=== PATIENT | male | born 1960 | race Caucasian/White ===

== ENCOUNTER 2023-09-06 10:52 | Outpatient (CLI) | payer BC, MEDICARE ==
[2023-09-06 11:49] LABS: BASOPHILS # (AUTO) 0.1 X10'3 (0-0.2); BASOPHILS % (AUTO) 0.7 % (0-1); EOSINOPHILS # (AUTO) 0.1 X10'3 (0-0.9); EOSINOPHILS % (AUTO) 1.1 % (0-6); HEMATOCRIT 41.2 % (42.0-52.0); HEMOGLOBIN 13.3 g/dl (14.0-17.9); LYMPHOCYTES # (AUTO) 1.3 X10'3 (1.1-4.8); MEAN CORPUSCULAR HEMOGLOBIN 26.2 PG (27.0-31.0); MEAN CORPUSCULAR HGB CONC 32.2 g/dL (33.0-36.5); MEAN CORPUSCULAR VOLUME 81.2 FL (78-98); MEAN PLATELET VOLUME 7.8 FL (7.4-10.4); MONOCYTES # (AUTO) 0.7 X10'3 (0-0.9); MONOCYTES % (AUTO) 8.7 % (2-12); NEUTROPHILS # (AUTO) 5.6 X10'3 (1.8-7.7); NEUTROPHILS % (AUTO) 72.5 % (42-75); PLATELET COUNT 286 X10'3 (140-440); RED BLOOD COUNT 5.08 X10'6 (4.70-6.10); RED CELL DISTRIBUTION WIDTH 19.1 % (11.5-14.5); WHITE BLOOD COUNT 7.7 X10'3 (4.5-11.0)
[2023-09-06 11:53] LABS: APTT 27 SECONDS (22-32); INR 1.1 INR; PROTHROMBIN TIME 11.1 SECONDS (9.0-12.0)
[2023-09-06 11:58] LABS: ALANINE AMINOTRANSFERASE 38 U/L (12-78); ALBUMIN 3.3 G/DL (3.4-5.0); ALBUMIN/GLOBULIN RATIO 0.8 (1.1-1.5); ALKALINE PHOSPHATASE 94 IU/L (46-116); ANION GAP 10 (8-16); ASPARTATE AMINO TRANSFERASE 19 U/L (10-37); BILIRUBIN,TOTAL 1.2 MG/DL (0.1-1.0); BLOOD UREA NITROGEN 21 MG/DL (7-18); BUN/CREATININE RATIO 20.2 (10.0-20.0); CALCIUM 9.3 MG/DL (8.5-10.1); CHLORIDE 104 MMOL/L (99-107); CREATININE 1.04 MG/DL (0.60-1.10); GLUCOSE 150 MG/DL (70-104); POTASSIUM 4.5 MMOL/L (3.5-5.1); SODIUM 139 MMOL/L (135-145); TOTAL CARBON DIOXIDE 25.3 MMOL/L (24-32); TOTAL PROTEIN 7.6 G/DL (6.4-8.2); eGFR 72 ML/MIN
[2023-09-06 12:05] LABS: PRO BRAIN NATRIURETIC PEPTIDE 344 PG/ML (0-125)
[2023-09-06] MEDS ORDERED: IODIXANOL 320 MG/ML INFUS..BTL 100ML IV ONE (12:49)
== END 2023-09-06 23:59 | disposition home or self-care (01) ==
LOC: RAD 10:52
PROVIDERS: ATTEND Internal Medicine Cardiovascular Disease
DX: I65.23 Occlusion and stenosis of bilateral carotid arteries (principal); I35.0 Nonrheumatic aortic (valve) stenosis; R06.02 Shortness of breath; I25.10 Atherosclerotic heart disease of native coronary artery without angina pectoris
CPT/HCPCS: 71046; 71275; 74174; 75572; 80053; 83880; 85025; 85610; 85730; 93880; Q9967

== ENCOUNTER 2023-11-09 08:30 | Inpatient (IN) | payer MEDICARE ==
[2023-11-03 15:09] LABS: BILIRUBIN,URINE NEGATIVE (Neg); CLARITY,URINE CLEAR (Clear); COLOR,URINE YELLOW (Yellow); GLUCOSE, URINE NEGATIVE (Neg); KETONES,URINE NEGATIVE (Neg); LEUKOCYTE ESTERASE ,URINE NEGATIVE (Neg); NITRITES, URINE NEGATIVE (Neg); OCCULT BLOOD,URINE NEGATIVE (Neg); PROTEIN,URINE NEGATIVE (Neg); UROBILINOGEN,URINE 0.2 E.U/dL (0.2-1.0)
[2023-11-03 15:19] LABS: BASOPHILS % (AUTO) 0.5 % (0-1); EOSINOPHILS # (AUTO) 0.1 X10'3 (0-0.9); EOSINOPHILS % (AUTO) 1.7 % (0-6); LYMPHOCYTES # (AUTO) 1.3 X10'3 (1.1-4.8); LYMPHOCYTES % (AUTO) 17.9 % (21-51); MEAN CORPUSCULAR HEMOGLOBIN 27.2 PG (27.0-31.0); MEAN CORPUSCULAR HGB CONC 32.8 g/dL (33.0-36.5); MEAN CORPUSCULAR VOLUME 82.8 FL (78-98); MONOCYTES # (AUTO) 0.7 X10'3 (0-0.9); MONOCYTES % (AUTO) 9.7 % (2-12); NEUTROPHILS # (AUTO) 5.2 X10'3 (1.8-7.7); NEUTROPHILS % (AUTO) 70.2 % (42-75); PRE OP HEMATOCRIT 41.8 % (42.0-52.0); PRE OP HEMOGLOBIN 13.7 g/dL (14.0-17.9); PRE OP PLATELET COUNT 213 X10'3 (140-440); PRE OP WHITE BLOOD COUNT 7.4 10'3 (4.8-10.8); RED BLOOD COUNT 5.05 X10'6 (4.70-6.10)
[2023-11-03 15:23] LABS: PRE OP INR 1.1 INR; PRE OP PROTIME 12.2 SECONDS (9.0-12.0)
[2023-11-03 15:26] LABS: UA COLLECTION TYPE CLN CATCH MIDSTREAM
[2023-11-03 15:28] LABS: ALBUMIN 3.3 G/DL (3.4-5.0); ALBUMIN/GLOBULIN RATIO 0.8 (1.1-1.5); ALKALINE PHOSPHATASE 96 IU/L (46-116); BLOOD UREA NITROGEN 17 MG/DL (7-18); BUN/CREATININE RATIO 18.7 (10.0-20.0); CALCIUM 9.1 MG/DL (8.5-10.1); CHLORIDE 101 MMOL/L (99-107); CREATININE 0.91 MG/DL (0.60-1.10); PRE OP ALT 24 U/L (30-65); PRE OP ANION GAP 11 (8-16); PRE OP AST 18 U/L (10-37); PRE OP BILIRUB, TOTAL 1.5 MG/DL (0.0-1.0); PRE OP GLUCOSE 116 MG/DL (70-104); PRE OP POTASSIUM 3.9 MMOL/L (3.4-5.1); PRE OP SODIUM 140 MMOL/L (135-145); TOTAL CARBON DIOXIDE 28.1 MMOL/L (24-32); TOTAL PROTEIN 7.6 G/DL (6.4-8.2); eGFR 84 ML/MIN
[2023-11-03 15:51] LABS: HEMOGLOBIN A1C 6.9 % (4.5-6.2)
[~2023-11-09] VITALS: Ht 185.4 cm; Wt 148.8 kg
[2023-11-09] MEDS: DOCUMENT DATE & TIME OF BETA-BLOCKER PO ONE (05:30)
[2023-11-09 07:06] LABS: ABG BASE EXCESS -1.8 mmol/L (-2.0-3.0); ABG HCO3 21.7 mmol/L (21.0-28.0); ABG OXYGEN SATURATION 94.3 % (94.0-98.0); ABG PCO2 (T) 33.3 mmHg (35.0-48.0); ABG PH (T) 7.432 (7.350-7.450); ABG PO2 (T) 72.9 mmHg (83.0-108.0); ALLEN'S TEST POSITIVE; FCOHb 0.4 % (0.5-1.5); FHHb 5.7 % (0.0-5.0); FMetHb 0.1 % (0.0-1.5); FO2Hb 93.8 % (94.0-98.0); TOTAL HEMOGLOBIN 13.9 G/dl (13.5-17.5)
[~2023-11-09 08:30] MED LIST: ATOR40TA71 PO; BENA1TAB88 PO; Insulin Reg/NS 100units/100mL 100 ML IV SCH; METF-900 PO; METO-539 PO; OMEP20CA16 PO; PIOG30TA10 PO; POTA-205 PO; RIVA20TA PO; dextrose 50%-water 50ml dispensing syringe IV PRN; insulin glargine (Lantus) pen - multi-dose SQ PRN; ringers solution, lacted 1,000 ML IV SCH
[2023-11-10] MEDS ORDERED: LORA10TA7 PO (12:00)
[2023-11-11] VITALS (16 sets, daily range): BP systolic 97–157; BP diastolic 46–76; PULSE 73–113; RESP 12–25; TEMP 97.8; O2SAT 90–97
[2023-11-11] MEDS ORDERED: dextrose 50%-water 50ml dispensing syringe IV PRN ×2 (05:30→17:00)
[2023-11-11] MEDS: metoprolol tartrate 12.5mg (1/2 tablet) PO ONE ×2 (05:30→08:05)
[2023-11-11] MEDS: DOCUMENT DATE & TIME OF BETA-BLOCKER PO ONE (05:30)
[2023-11-11] MEDS ORDERED: Insulin Reg/NS 100units/100mL 100 ML IV SCH (05:30)
[2023-11-11] MEDS: famotidine 20mg tablet PO ONE ×2 (05:30→08:05)
[2023-11-11] MEDS: ceFAZolin/D5W- 1GM premix 50 ML IV ONE (07:35)
[2023-11-11] MEDS: ringers solution, lacted 1,000 ML IV SCH (08:04)
[2023-11-11] MEDS: midazolam 1 mg/ML 2ml injection IV ONE (08:35)
[2023-11-11] MEDS: ceFAZolin 1000mg inj ONE ×2 (10:22→12:50)
[2023-11-11] MEDS: BUPIVAcaine 0.5% inj/PF 30 ML ONE (10:22)
[2023-11-11] MEDS ORDERED: isoflurane 100ml inhalation liquid IH ONE (11:09)
[2023-11-11 11:55] LABS: ABG BASE EXCESS -0.7 mmol/L (-2.0-3.0); ABG HCO3 23.5 mmol/L (21.0-28.0); ABG OXYGEN SATURATION 99.2 % (94.0-98.0); ABG PCO2 37.1 mmHg (35.0-48.0); ABG PH 7.419 (7.350-7.450); ABG PO2 259.2 mmHg (83.0-108.0); CL (ABG) 107 mmol/L (98-107); FCOHb 0.2 % (0.5-1.5); FHHb 0.8 % (0.0-5.0); FMetHb 0.3 % (0.0-1.5); FO2Hb 98.7 % (94.0-98.0); GLUCOSE (ABG) 109 mg/dl (65-95); IONIZED CA (ABG) 1.13 mmol/L (1.15-1.33); K (ABG) 3.8 mmol/L (3.40-4.50); TOTAL HEMOGLOBIN 12.2 G/dl (13.5-17.5)
[2023-11-11] MEDS: ceFAZolin 1000mg inj IR ONE (12:20)
[2023-11-11 13:23] LABS: ABG HCO3 VENOUS 26.9 mmol/L (22.0-29.0); ABG OXYGEN SATURATION VENOUS 77.9 % (60.0-85.0); ABG PCO2 VENOUS 43.4 mmHg (38.0-54.0); ABG PO2 VENOUS 43.4 mmHg (23.0-48.0); CL (ABG) 102 mmol/L (98-107); FCOHb VENOUS 0.3 % (0.5-1.5); FMetHb VENOUS 0.3 % (0.5-1.5); FO2Hb VENOUS 77.4 % (0-80.0); GLUCOSE (ABG) 120 mg/dl (65-95); IONIZED CA (ABG) 0.95 mmol/L (1.15-1.33); K (ABG) 4.1 mmol/L (3.40-4.50)
[2023-11-11 13:40] LABS: ABG BASE EXCESS 1.2 mmol/L (-2.0-3.0); ABG HCO3 24.8 mmol/L (21.0-28.0); ABG OXYGEN SATURATION 99.2 % (94.0-98.0); ABG PCO2 35.3 mmHg (35.0-48.0); ABG PH 7.464 (7.350-7.450); CL (ABG) 105 mmol/L (98-107); FCOHb 0.3 % (0.5-1.5); FHHb 0.8 % (0.0-5.0); FMetHb 0.3 % (0.0-1.5); FO2Hb 98.6 % (94.0-98.0); GLUCOSE (ABG) 130 mg/dl (65-95); IONIZED CA (ABG) 1.04 mmol/L (1.15-1.33); K (ABG) 3.7 mmol/L (3.40-4.50); TOTAL HEMOGLOBIN 9.5 G/dl (13.5-17.5)
[2023-11-11 14:03] LABS: ABG BASE EXCESS 0.8 mmol/L (-2.0-3.0); ABG HCO3 25.6 mmol/L (21.0-28.0); ABG OXYGEN SATURATION 99.6 % (94.0-98.0); ABG PCO2 41.7 mmHg (35.0-48.0); ABG PH 7.406 (7.350-7.450); CL (ABG) 107 mmol/L (98-107); FCOHb 0.1 % (0.5-1.5); FHHb 0.4 % (0.0-5.0); FMetHb 0.3 % (0.0-1.5); FO2Hb 99.2 % (94.0-98.0); GLUCOSE (ABG) 143 mg/dl (65-95); IONIZED CA (ABG) 1.05 mmol/L (1.15-1.33); K (ABG) 4.4 mmol/L (3.40-4.50); TOTAL HEMOGLOBIN 9.8 G/dl (13.5-17.5)
[2023-11-11 14:40] LABS: ABG BASE EXCESS -0.3 mmol/L (-2.0-3.0); ABG HCO3 26.1 mmol/L (21.0-28.0); ABG OXYGEN SATURATION 99.4 % (94.0-98.0); ABG PCO2 51.3 mmHg (35.0-48.0); ABG PH 7.324 (7.350-7.450); CL (ABG) 108 mmol/L (98-107); FCOHb 0.3 % (0.5-1.5); FHHb 0.6 % (0.0-5.0); FMetHb 0.3 % (0.0-1.5); FO2Hb 98.8 % (94.0-98.0); GLUCOSE (ABG) 158 mg/dl (65-95); IONIZED CA (ABG) 1.08 mmol/L (1.15-1.33); K (ABG) 4.4 mmol/L (3.40-4.50)
[2023-11-11 15:13] LABS: ABG BASE EXCESS -1.3 mmol/L (-2.0-3.0); ABG HCO3 23.9 mmol/L (21.0-28.0); ABG OXYGEN SATURATION 99.4 % (94.0-98.0); ABG PCO2 41.8 mmHg (35.0-48.0); ABG PH 7.375 (7.350-7.450); CL (ABG) 108 mmol/L (98-107); FCOHb 0.3 % (0.5-1.5); FHHb 0.6 % (0.0-5.0); FMetHb 0.3 % (0.0-1.5); FO2Hb 98.8 % (94.0-98.0); GLUCOSE (ABG) 168 mg/dl (65-95); IONIZED CA (ABG) 1.08 mmol/L (1.15-1.33); K (ABG) 4.3 mmol/L (3.40-4.50); TOTAL HEMOGLOBIN 10.5 G/dl (13.5-17.5)
[2023-11-11 15:55] LABS: ABG HCO3 22.7 mmol/L (21.0-28.0); ABG PCO2 43.2 mmHg (35.0-48.0); ABG PH 7.338 (7.350-7.450); CL (ABG) 108 mmol/L (98-107); FCOHb 0.3 % (0.5-1.5); FHHb 19.8 % (0.0-5.0); FMetHb 0.3 % (0.0-1.5); FO2Hb 79.6 % (94.0-98.0); GLUCOSE (ABG) 153 mg/dl (65-95); IONIZED CA (ABG) 1.17 mmol/L (1.15-1.33); K (ABG) 3.9 mmol/L (3.40-4.50); TOTAL HEMOGLOBIN 9.9 G/dl (13.5-17.5)
[2023-11-11] MEDS: Insulin Reg/NS 100units/100mL 100 ML IV SCH (17:00)
[2023-11-11] MEDS ORDERED: Neutra Phos packet PO PRN (17:00)
[2023-11-11] MEDS ORDERED: nitroGLYCERIN-Tridil 50MG/D5W 250 ML IV PRN (17:00)
[2023-11-11] MEDS ORDERED: sodium phosphate inj. 30 MMOL in dextrose 5%-water 250 ML IV PRN (17:00)
[2023-11-11] MEDS ORDERED: metoclopramide 5 mg/ml inj IV PRN (17:00)
[2023-11-11] MEDS ORDERED: magnesium sulf-water 4G/100mL 100 ML IV PRN (17:00)
[2023-11-11] MEDS ORDERED: NORepinephrine 8mg/ 250ml NS 250 ML IV PRN (17:00)
[2023-11-11] MEDS: sodium chloride 0.45% 1,000 ML IV SCH (17:00)
[2023-11-11] MEDS ORDERED: potassium Cl 20 mEq SR tablet PO PRN (17:00)
[2023-11-11] MEDS ORDERED: potassium Cl 40MEQ/1/2NS 520ml 520 ML IV PRN (17:00)
[2023-11-11] MEDS ORDERED: bisacodyl 10mg suppository rectal RC PRN (17:00)
[2023-11-11] MEDS ORDERED: DOBUTamine-DoBUTrex 500mg/D5W 250 ML IV PRN (17:00)
[2023-11-11] MEDS ORDERED: normal saline 250ml IV soln 250 ML IV PRN (17:00)
[2023-11-11] MEDS ORDERED: insulin glargine (Lantus) pen - multi-dose SQ PRN (17:00)
[2023-11-11] MEDS ORDERED: acetaminophen 325mg tablet PO PRN (17:00)
[2023-11-11] MEDS ORDERED: mineral oil 133ml enema RC PRN (17:00)
[2023-11-11] MEDS ORDERED: magnesium hydroxide 30ml (MOM) UD suspension PO PRN (17:00)
[2023-11-11] MEDS ORDERED: potassium CL 10mEq/100ml bag 100 ML IV PRN (17:00)
[2023-11-11] MEDS ORDERED: potassium Cl 40MEQ/270ML bag 250 ML IV PRN (17:00)
[2023-11-11 17:34] LABS: ABG BASE EXCESS -5.4 mmol/L (-2.0-3.0); ABG HCO3 22.4 mmol/L (21.0-28.0); ABG OXYGEN SATURATION 96.9 % (94.0-98.0); ABG PCO2 (T) 51.6 mmHg (35.0-48.0); ABG PH (T) 7.249 (7.350-7.450); ABG PO2 (T) 104.6 mmHg (83.0-108.0); FCOHb 0.6 % (0.5-1.5); FHHb 3.1 % (0.0-5.0); FMetHb 0.3 % (0.0-1.5); MODE VENT - SIMV/VC; PATIENT TEMPERATURE 35.7; PEEP 5 cm H2O; RESPIRATORY RATE 12 b/min; TIDAL VOLUME 600 mL; TOTAL HEMOGLOBIN 11.4 G/dl (13.5-17.5)
[2023-11-11 17:38] LABS: BASOPHILS % (AUTO) 0.2 % (0-1); EOSINOPHILS # (AUTO) 0.1 X10'3 (0-0.9); EOSINOPHILS % (AUTO) 0.4 % (0-6); HEMOGLOBIN 10.6 g/dl (14.0-17.9); LYMPHOCYTES # (AUTO) 1.6 X10'3 (1.1-4.8); LYMPHOCYTES % (AUTO) 8.5 % (21-51); MEAN CORPUSCULAR HEMOGLOBIN 27.4 PG (27.0-31.0); MEAN CORPUSCULAR HGB CONC 32.1 g/dL (33.0-36.5); MEAN CORPUSCULAR VOLUME 85.3 FL (78-98); MEAN PLATELET VOLUME 7.6 FL (7.4-10.4); MONOCYTES # (AUTO) 1.3 X10'3 (0-0.9); MONOCYTES % (AUTO) 6.9 % (2-12); NEUTROPHILS # (AUTO) 15.9 X10'3 (1.8-7.7); PLATELET COUNT 126 X10'3 (140-440); RED BLOOD COUNT 3.87 X10'6 (4.70-6.10); RED CELL DISTRIBUTION WIDTH 17.6 % (11.5-14.5); WHITE BLOOD COUNT 18.9 X10'3 (4.5-11.0)
[2023-11-11 17:53] LABS: ALANINE AMINOTRANSFERASE 19 U/L (12-78); ALBUMIN 2.8 G/DL (3.4-5.0); ALBUMIN/GLOBULIN RATIO 1.1 (1.1-1.5); ALKALINE PHOSPHATASE 54 IU/L (46-116); ANION GAP 10 (8-16); APTT 28 SECONDS (22-32); BLOOD UREA NITROGEN 15 MG/DL (7-18); CALCIUM 7.9 MG/DL (8.5-10.1); CHLORIDE 111 MMOL/L (99-107); CREATININE 0.79 MG/DL (0.60-1.10); FIBRINOGEN 248 MG/DL (177-424); GLUCOSE 171 MG/DL (70-104); INR 1.3 INR; MAGNESIUM 2.4 MG/DL (1.5-2.4); PROTHROMBIN TIME 13.6 SECONDS (9.0-12.0); SODIUM 146 MMOL/L (135-145); TOTAL PROTEIN 5.3 G/DL (6.4-8.2); eCRCL 105 ML/MIN; eGFR > 90 ML/MIN
[2023-11-11 17:58] LABS: ASPARTATE AMINO TRANSFERASE 46 U/L (10-37); PHOSPHORUS 3.5 MG/DL (2.3-4.5); POTASSIUM 3.9 MMOL/L (3.5-5.1)
[2023-11-11] MEDS ORDERED: dexmedetomidine inj. 1,000 MCG in normal saline 250ml IV soln 240 ML IV SCH (18:15)
[2023-11-11] MEDS: morphine 4 MG/ML inj SYRINge IV PRN (18:25)
[2023-11-11] MEDS: niCARDipine-NS 40mg/200ml IVPB 200 ML IV PRN (18:25)
[2023-11-11] MEDS: potassium Cl 20mEq/100mL bag 100 ML IV PRN (18:33)
[2023-11-11] MEDS: magnesium sulf-water 2g/50mL 50 ML IV PRN (18:33)
[2023-11-11] MEDS: DEXMEDETOMIDINE 400MCG in NORMAL SALINE 100ml IV SCH (18:41)
[2023-11-11] MEDS: albumin (Human) 5% 250ml 250 ML IV PRN (19:06)
[2023-11-11] MEDS: acetaminophen 325mg tablet PO PRN (19:35)
[2023-11-11] MEDS: vancomycin/NS 1 GM ADD-VANTAGE 250 ML IV SCH (19:59)
[2023-11-11] MEDS: atorvastatin 10mg tablet PO SCH (20:00)
[2023-11-11] MEDS: aspirin 81mg tab.chew PO ONE (20:00)
[2023-11-11] MEDS: mupirocin 2% nasal ointment 1gm UD NS SCH (20:00)
[2023-11-11] MEDS: gabapentin 300mg capsule PO SCH (20:00)
[2023-11-11] MEDS: sennosides/docusate sodium tablet PO SCH (20:00)
[2023-11-11] MEDS: furosemide 20 MG/2 ML vial IV ONE (20:42)
[2023-11-11] MEDS: COMMUNICATION ORDER 1 EA MISC MC ONE (20:42)
[2023-11-11 21:03] LABS: ABG BASE EXCESS -7.2 mmol/L (-2.0-3.0); ABG HCO3 18.4 mmol/L (21.0-28.0); ABG OXYGEN SATURATION 93.6 % (94.0-98.0); ABG PCO2 (T) 34.6 mmHg (35.0-48.0); ABG PH (T) 7.336 (7.350-7.450); FCOHb 0.5 % (0.5-1.5); FHHb 6.3 % (0.0-5.0); FMetHb 0.3 % (0.0-1.5); FO2Hb 92.9 % (94.0-98.0); MODE Vent-SIMV-VC; PATIENT TEMPERATURE 35.4; PEEP 5 cm H2O; RESPIRATORY RATE 15 b/min; TIDAL VOLUME 600 mL; TOTAL HEMOGLOBIN 10.7 G/dl (13.5-17.5)
[2023-11-11] MEDS: milrinone (Primacor) 20mg/D5W 100 ML IV PRN (21:51)
[2023-11-11 23:47] LABS: BASOPHILS % (AUTO) 0.1 % (0-1); EOSINOPHILS % (AUTO) 0 % (0-6); HEMATOCRIT 29.8 % (42.0-52.0); HEMOGLOBIN 9.6 g/dl (14.0-17.9); LYMPHOCYTES # (AUTO) 0.3 X10'3 (1.1-4.8); LYMPHOCYTES % (AUTO) 2.3 % (21-51); MEAN CORPUSCULAR HEMOGLOBIN 27.4 PG (27.0-31.0); MEAN CORPUSCULAR HGB CONC 32.3 g/dL (33.0-36.5); MEAN CORPUSCULAR VOLUME 84.8 FL (78-98); MEAN PLATELET VOLUME 7.6 FL (7.4-10.4); MONOCYTES # (AUTO) 0.7 X10'3 (0-0.9); MONOCYTES % (AUTO) 5.2 % (2-12); NEUTROPHILS # (AUTO) 12.7 X10'3 (1.8-7.7); NEUTROPHILS % (AUTO) 92.4 % (42-75); PLATELET COUNT 115 X10'3 (140-440); RED BLOOD COUNT 3.51 X10'6 (4.70-6.10); RED CELL DISTRIBUTION WIDTH 17.7 % (11.5-14.5); WHITE BLOOD COUNT 13.8 X10'3 (4.5-11.0)
[2023-11-11] MEDS: cefazolin 2gm/D5W 100mL 100 ML IV SCH (23:56)
[2023-11-12] VITALS (26 sets, daily range): BP systolic 97–157; BP diastolic 46–100; PULSE 63–90; RESP 10–23; O2SAT 88–98
[2023-11-12 00:01] LABS: ALBUMIN 3.2 G/DL (3.4-5.0); ANION GAP 10 (8-16); BLOOD UREA NITROGEN 18 MG/DL (7-18); BUN/CREATININE RATIO 15.3 (10.0-20.0); CHLORIDE 110 MMOL/L (99-107); CREATININE 1.18 MG/DL (0.60-1.10); GLUCOSE 191 MG/DL (70-104); MAGNESIUM 2.5 MG/DL (1.5-2.4); PHOSPHORUS 2.9 MG/DL (2.3-4.5); SODIUM 143 MMOL/L (135-145); TOTAL CARBON DIOXIDE 23.4 MMOL/L (24-32); eCRCL 71 ML/MIN; eGFR 62 ML/MIN
[2023-11-12 00:02] LABS: POTASSIUM 4.7 MMOL/L (3.5-5.1)
[2023-11-12] MEDS: HYDROcodone/acetaminophen 10/325mg tab PO PRN ×2 (00:16→04:16)
[2023-11-12 02:49] LABS: BASOPHILS % (AUTO) 0 % (0-1); EOSINOPHILS % (AUTO) 0 % (0-6); HEMATOCRIT 29.2 % (42.0-52.0); HEMOGLOBIN 9.4 g/dl (14.0-17.9); LYMPHOCYTES # (AUTO) 0.3 X10'3 (1.1-4.8); LYMPHOCYTES % (AUTO) 2.8 % (21-51); MEAN CORPUSCULAR HGB CONC 32.1 g/dL (33.0-36.5); MEAN CORPUSCULAR VOLUME 84.3 FL (78-98); MEAN PLATELET VOLUME 7.8 FL (7.4-10.4); MONOCYTES # (AUTO) 0.4 X10'3 (0-0.9); MONOCYTES % (AUTO) 3.5 % (2-12); NEUTROPHILS # (AUTO) 11.1 X10'3 (1.8-7.7); NEUTROPHILS % (AUTO) 93.7 % (42-75); PLATELET COUNT 107 X10'3 (140-440); RED BLOOD COUNT 3.46 X10'6 (4.70-6.10); RED CELL DISTRIBUTION WIDTH 17.7 % (11.5-14.5); WHITE BLOOD COUNT 11.8 X10'3 (4.5-11.0)
[2023-11-12 02:55] LABS: APTT 32 SECONDS (22-32); INR 1.1 INR; PROTHROMBIN TIME 11.7 SECONDS (9.0-12.0)
[2023-11-12 02:59] LABS: ALANINE AMINOTRANSFERASE 22 U/L (12-78); ALBUMIN 3.1 G/DL (3.4-5.0); ALBUMIN/GLOBULIN RATIO 1.3 (1.1-1.5); ALKALINE PHOSPHATASE 51 IU/L (46-116); ANION GAP 9 (8-16); ASPARTATE AMINO TRANSFERASE 57 U/L (10-37); BILIRUBIN,TOTAL 2.3 MG/DL (0.1-1.0); BLOOD UREA NITROGEN 19 MG/DL (7-18); BUN/CREATININE RATIO 16.4 (10.0-20.0); CALCIUM 8.3 MG/DL (8.5-10.1); CHLORIDE 111 MMOL/L (99-107); CREATININE 1.16 MG/DL (0.60-1.10); GLUCOSE 171 MG/DL (70-104); MAGNESIUM 2.6 MG/DL (1.5-2.4); PHOSPHORUS 2.3 MG/DL (2.3-4.5); POTASSIUM 4.3 MMOL/L (3.5-5.1); SODIUM 145 MMOL/L (135-145); TOTAL CARBON DIOXIDE 25.3 MMOL/L (24-32); TOTAL PROTEIN 5.4 G/DL (6.4-8.2); eCRCL 72 ML/MIN; eGFR 63 ML/MIN
[2023-11-12] MEDS: sodium phosphate inj. 15 MMOL in dextrose 5%-water 250 ML IV PRN (03:55)
[2023-11-12] MEDS: ondansetron/PF 4mg/2ml inj IV PRN (05:15)
[2023-11-12] MEDS: morphine 2 MG/ML inj. syringe IV PRN (05:16)
[2023-11-12] MEDS: metoprolol tartrate 12.5mg (1/2 tablet) PO SCH (09:44)
[2023-11-12] MEDS: aspirin 81mg tab.chew PO SCH (09:44)
[2023-11-12] MEDS: mineral oil/petrolatum ophthal oint EACHEYE SCH (14:00)
[2023-11-12] MEDS: ringers solution, lacted 1,000 ML IV ONE (14:32)
[2023-11-13] VITALS (19 sets, daily range): BP systolic 109–141; BP diastolic 44–71; PULSE 70–101; RESP 11–25; TEMP 97.4–98.9; O2SAT 90–99
[2023-11-13 03:06] LABS: BASOPHILS % (AUTO) 0 % (0-1); EOSINOPHILS % (AUTO) 0 % (0-6); HEMATOCRIT 26.3 % (42.0-52.0); HEMOGLOBIN 8.5 g/dl (14.0-17.9); LYMPHOCYTES # (AUTO) 0.6 X10'3 (1.1-4.8); LYMPHOCYTES % (AUTO) 3.2 % (21-51); MEAN CORPUSCULAR HEMOGLOBIN 27.3 PG (27.0-31.0); MEAN CORPUSCULAR HGB CONC 32.3 g/dL (33.0-36.5); MEAN CORPUSCULAR VOLUME 84.5 FL (78-98); MEAN PLATELET VOLUME 8.4 FL (7.4-10.4); MONOCYTES # (AUTO) 1.6 X10'3 (0-0.9); MONOCYTES % (AUTO) 8.2 % (2-12); NEUTROPHILS # (AUTO) 17.3 X10'3 (1.8-7.7); NEUTROPHILS % (AUTO) 88.6 % (42-75); PLATELET COUNT 109 X10'3 (140-440); RED BLOOD COUNT 3.11 X10'6 (4.70-6.10); RED CELL DISTRIBUTION WIDTH 18.2 % (11.5-14.5); WHITE BLOOD COUNT 19.5 X10'3 (4.5-11.0)
[2023-11-13 03:16] LABS: ALBUMIN 2.8 G/DL (3.4-5.0); ANION GAP 5 (8-16); BLOOD UREA NITROGEN 21 MG/DL (7-18); BUN/CREATININE RATIO 20.6 (10.0-20.0); CHLORIDE 106 MMOL/L (99-107); CREATININE 1.02 MG/DL (0.60-1.10); GLUCOSE 114 MG/DL (70-104); MAGNESIUM 2.4 MG/DL (1.5-2.4); PHOSPHORUS 4.2 MG/DL (2.3-4.5); POTASSIUM 5.3 MMOL/L (3.5-5.1); SODIUM 138 MMOL/L (135-145); eCRCL 82 ML/MIN; eGFR 73 ML/MIN
[2023-11-13] MEDS: pantoprazole 40mg Tablet.DR PO SCH (08:16)
[2023-11-13] MEDS ORDERED: potassium Cl 20 mEq SR tablet PO PRN ×2 (08:25)
[2023-11-13] MEDS ORDERED: magnesium sulf-water 2g/50mL 50 ML IV PRN (08:25)
[2023-11-13] MEDS ORDERED: magnesium sulf-water 4G/100mL 100 ML IV PRN (08:25)
[2023-11-13] MEDS ORDERED: potassium Cl 40MEQ/1/2NS 520ml 520 ML IV PRN (08:25)
[2023-11-13] MEDS ORDERED: potassium Cl 40MEQ/270ML bag 250 ML IV PRN (08:25)
[2023-11-13] MEDS ORDERED: potassium CL 10mEq/100ml bag 100 ML IV PRN (08:25)
[2023-11-13] MEDS ORDERED: potassium Cl 20mEq/100mL bag 100 ML IV PRN (08:25)
[2023-11-13] MEDS ORDERED: dextrose 50%-water 50ml dispensing syringe IV PRN ×2 (09:10)
[2023-11-13] MEDS ORDERED: glucagon, human recombinant 1mg kit SUBCUT PRN (09:10)
[2023-11-13] MEDS ORDERED: DEXTROSE 15 GM of carb/4 tabs (each vial/BOTTLE has 4 tablets) PO PRN ×2 (09:10)
[2023-11-13] MEDS: INSULIN LISPRO 100 UNIT/ML INSULN.PEN MULTI-DOSE SQ SCH ×2 (13:25→13:26)
[2023-11-13] MEDS: rivaroxaban 20mg tablet PO SCH (17:59)
[2023-11-13] MEDS: magnesium Cl slow-release 64mg tablet PO SCH (20:01)
[2023-11-13] MEDS: insulin glargine (Lantus) pen - multi-dose SQ SCH (23:09)
[2023-11-14] VITALS (10 sets, daily range): BP systolic 99–131; BP diastolic 57–72; PULSE 74–105; RESP 16–26; TEMP 97–99.1; O2SAT 90–96
[2023-11-14 05:23] LABS: BASOPHILS % (AUTO) 0 % (0-1); EOSINOPHILS # (AUTO) 0.1 X10'3 (0-0.9); EOSINOPHILS % (AUTO) 0.9 % (0-6); HEMATOCRIT 26.8 % (42.0-52.0); HEMOGLOBIN 8.7 g/dl (14.0-17.9); LYMPHOCYTES # (AUTO) 1.3 X10'3 (1.1-4.8); LYMPHOCYTES % (AUTO) 9.1 % (21-51); MEAN CORPUSCULAR HEMOGLOBIN 27.5 PG (27.0-31.0); MEAN CORPUSCULAR HGB CONC 32.5 g/dL (33.0-36.5); MEAN CORPUSCULAR VOLUME 84.7 FL (78-98); MONOCYTES # (AUTO) 1.3 X10'3 (0-0.9); MONOCYTES % (AUTO) 8.6 % (2-12); NEUTROPHILS % (AUTO) 81.4 % (42-75); PLATELET COUNT 131 X10'3 (140-440); RED BLOOD COUNT 3.16 X10'6 (4.70-6.10); RED CELL DISTRIBUTION WIDTH 18.2 % (11.5-14.5); WHITE BLOOD COUNT 14.7 X10'3 (4.5-11.0)
[2023-11-14 05:25] LABS: ALBUMIN 2.6 G/DL (3.4-5.0); ANION GAP 6 (8-16); BLOOD UREA NITROGEN 18 MG/DL (7-18); BUN/CREATININE RATIO 19.1 (10.0-20.0); CALCIUM 7.9 MG/DL (8.5-10.1); CHLORIDE 106 MMOL/L (99-107); CREATININE 0.94 MG/DL (0.60-1.10); GLUCOSE 156 MG/DL (70-104); MAGNESIUM 2.1 MG/DL (1.5-2.4); POTASSIUM 4.5 MMOL/L (3.5-5.1); SODIUM 140 MMOL/L (135-145); TOTAL CARBON DIOXIDE 27.6 MMOL/L (24-32); eCRCL 89 ML/MIN; eGFR 81 ML/MIN
[2023-11-14 08:41] LABS: ACT @ 1.70 U 219 SEC (193-297); ACT @ 2.84 U 289 SEC (260-420); BASELINE ACT 94 SEC (101-148)
[2023-11-14 10:10] LABS: ABG PO2 387.9 mmHg (83.0-108.0)
[2023-11-14 10:11] LABS: ABG PO2 433.7 mmHg (83.0-108.0)
[2023-11-14 10:14] LABS: ABG PO2 443.7 mmHg (83.0-108.0)
[2023-11-14 10:16] LABS: ABG PO2 394.6 mmHg (83.0-108.0)
[2023-11-14 10:16] LABS: ABG PO2 47.5 mmHg (83.0-108.0)
[2023-11-14] MEDS: furosemide 40mg/4ml inj IV ONE (10:16)
[2023-11-14 10:17] LABS: ABG OXYGEN SATURATION 80.1 % (94.0-98.0)
[2023-11-14] MEDS: levoFLOXACIN 500mg tablet PO SCH (11:52)
[2023-11-14] MEDS ORDERED: heparin, porcine 5000 units/ml vial SQ SCH (16:00)
[2023-11-15] VITALS (13 sets, daily range): BP systolic 103–135; BP diastolic 63–79; PULSE 70–90; RESP 16–21; TEMP 97.4–98.1; O2SAT 93–97
[2023-11-15] MEDS: heparin, porcine 5000 units/ml vial SQ SCH
[2023-11-15 06:21] LABS: BASOPHILS % (AUTO) 0.2 % (0-1); EOSINOPHILS # (AUTO) 0.3 X10'3 (0-0.9); HEMATOCRIT 29.6 % (42.0-52.0); HEMOGLOBIN 9.5 g/dl (14.0-17.9); LYMPHOCYTES # (AUTO) 1.3 X10'3 (1.1-4.8); MEAN CORPUSCULAR HEMOGLOBIN 27.3 PG (27.0-31.0); MEAN CORPUSCULAR HGB CONC 32.1 g/dL (33.0-36.5); MEAN CORPUSCULAR VOLUME 85.1 FL (78-98); MEAN PLATELET VOLUME 7.8 FL (7.4-10.4); NEUTROPHILS # (AUTO) 10.2 X10'3 (1.8-7.7); NEUTROPHILS % (AUTO) 79.8 % (42-75); PLATELET COUNT 180 X10'3 (140-440); RED BLOOD COUNT 3.47 X10'6 (4.70-6.10); RED CELL DISTRIBUTION WIDTH 18.4 % (11.5-14.5); WHITE BLOOD COUNT 12.7 X10'3 (4.5-11.0)
[2023-11-15 06:43] LABS: ALBUMIN 2.7 G/DL (3.4-5.0); ANION GAP 8 (8-16); BLOOD UREA NITROGEN 17 MG/DL (7-18); BUN/CREATININE RATIO 23.6 (10.0-20.0); CALCIUM 8.5 MG/DL (8.5-10.1); CHLORIDE 105 MMOL/L (99-107); CREATININE 0.72 MG/DL (0.60-1.10); GLUCOSE 133 MG/DL (70-104); MAGNESIUM 2.2 MG/DL (1.5-2.4); SODIUM 140 MMOL/L (135-145); TOTAL CARBON DIOXIDE 27.1 MMOL/L (24-32); eCRCL 116 ML/MIN; eGFR > 90 ML/MIN
[2023-11-15] MEDS: furosemide 40mg tablet PO SCH (09:57)
[2023-11-16] VITALS (7 sets, daily range): BP systolic 128–134; BP diastolic 63–81; PULSE 78–92; RESP 16–24; TEMP 98–98.8; O2SAT 92–96
[2023-11-16 04:55] LABS: BASOPHILS % (AUTO) 0.5 % (0-1); EOSINOPHILS # (AUTO) 0.3 X10'3 (0-0.9); EOSINOPHILS % (AUTO) 3.3 % (0-6); HEMATOCRIT 28.6 % (42.0-52.0); HEMOGLOBIN 9.4 g/dl (14.0-17.9); LYMPHOCYTES # (AUTO) 1.2 X10'3 (1.1-4.8); MEAN CORPUSCULAR HEMOGLOBIN 27.4 PG (27.0-31.0); MEAN CORPUSCULAR HGB CONC 32.7 g/dL (33.0-36.5); MEAN CORPUSCULAR VOLUME 83.6 FL (78-98); MEAN PLATELET VOLUME 7.5 FL (7.4-10.4); MONOCYTES # (AUTO) 0.9 X10'3 (0-0.9); MONOCYTES % (AUTO) 9.2 % (2-12); PLATELET COUNT 219 X10'3 (140-440); RED BLOOD COUNT 3.43 X10'6 (4.70-6.10); RED CELL DISTRIBUTION WIDTH 17.6 % (11.5-14.5); WHITE BLOOD COUNT 9.5 X10'3 (4.5-11.0)
[2023-11-16 05:11] LABS: ALBUMIN 2.5 G/DL (3.4-5.0); ANION GAP 7 (8-16); BLOOD UREA NITROGEN 16 MG/DL (7-18); BUN/CREATININE RATIO 21.1 (10.0-20.0); CALCIUM 8.5 MG/DL (8.5-10.1); CHLORIDE 105 MMOL/L (99-107); CREATININE 0.76 MG/DL (0.60-1.10); GLUCOSE 126 MG/DL (70-104); POTASSIUM 3.8 MMOL/L (3.5-5.1); SODIUM 141 MMOL/L (135-145); TOTAL CARBON DIOXIDE 29.3 MMOL/L (24-32); eCRCL 110 ML/MIN; eGFR > 90 ML/MIN
[2023-11-17 06:00] VITALS: BP 137/71; PULSE 91; RESP 17; TEMP 97.5; O2SAT 95
[2023-11-17 07:01] LABS: ALBUMIN 2.4 G/DL (3.4-5.0); ANION GAP 5 (8-16); BLOOD UREA NITROGEN 13 MG/DL (7-18); BUN/CREATININE RATIO 15.7 (10.0-20.0); CALCIUM 8.6 MG/DL (8.5-10.1); CHLORIDE 104 MMOL/L (99-107); CREATININE 0.83 MG/DL (0.60-1.10); GLUCOSE 105 MG/DL (70-104); POTASSIUM 3.9 MMOL/L (3.5-5.1); SODIUM 140 MMOL/L (135-145); TOTAL CARBON DIOXIDE 30.8 MMOL/L (24-32); eCRCL 100 ML/MIN; eGFR > 90 ML/MIN
[2023-11-17 07:38] VITALS: RESP 17; O2SAT 95
[2023-11-17 08:00] VITALS: O2SAT 95
[2023-11-17] MEDS: furosemide 40mg tablet PO SCH (08:30)
[2023-11-17 09:14] VITALS: PULSE 92; RESP 20; O2SAT 94
[2023-11-17 11:00] VITALS: BP 122/57; PULSE 65; RESP 21; TEMP 97.7; O2SAT 94
== END 2023-11-17 16:00 | DRG 219 ==
LOC: PAS IN 11-11 06:46 → CICU 2S 11-11 13:20 → PCU 3S 11-13 14:36
PROVIDERS: ADMIT Thoracic Surgery (Cardiothoracic Vascular Surgery); ATTEND Thoracic Surgery (Cardiothoracic Vascular Surgery)
PROC: 02L70ZK Occlusion of Left Atrial Appendage, Open Approach (ICD-10-PCS; 2023-11-11)
PROC: B24BZZ4 Ultrasonography of Heart with Aorta, Transesophageal (ICD-10-PCS; 2023-11-11)
PROC: 02RF08Z Replacement of Aortic Valve with Zooplastic Tissue, Open Approach (ICD-10-PCS; principal; 2023-11-11 11:09)
PROC: 5A09357 Assistance with Respiratory Ventilation, Less than 24 Consecutive Hours, Continuous Positive Airway Pressure (ICD-10-PCS; 2023-11-12)
PROC: 5A09357 Assistance with Respiratory Ventilation, Less than 24 Consecutive Hours, Continuous Positive Airway Pressure (ICD-10-PCS; 2023-11-14)
DX: I35.0 Nonrheumatic aortic (valve) stenosis (principal); J96.20 Acute and chronic respiratory failure, unspecified whether with hypoxia or hypercapnia; I48.20 Chronic atrial fibrillation, unspecified; Z68.41 Body mass index [BMI] 40.0-44.9, adult; I10 Essential (primary) hypertension; E66.01 Morbid (severe) obesity due to excess calories; E11.9 Type 2 diabetes mellitus without complications; J44.9 Chronic obstructive pulmonary disease, unspecified; G47.33 Obstructive sleep apnea (adult) (pediatric); I87.8 Other specified disorders of veins; Z79.01 Long term (current) use of anticoagulants
CPT/HCPCS: 0232T; 93312; 93325; 36415; 36600; 71045; 71046; 76376; 80048; 80053; 81003; 82330; 82435; 82803; 82947; 82948; 83036; 83735; 84100; 84132; 84295; 85018; 85025; 85347; 85384; 85610; 85730; 86885; 86900; 86901; 86920; 87070; 87081; 88300; 93005; 93970; 94002; 94660; 94760; 97110; 97116; 97162; 97530; 97535; A4333; A4340; A4615; A4618; A6212; A6213; A6222; A6223; A6250; A6258; A6402; A6446; A6449; A6590; A7000; A7048; C1751; G0378; J0665; J0690; J1100; J1250; J1644; J1815; J1940; J2150; J2250; J2260; J2270; J2370; J2371; J2405; J2704; J2919; J3370; J3480; J3490; J7030; J7040; J7050; J7060; J7120; P9016; P9045; P9047